=== PATIENT | female | born 1950 | race Caucasian/White ===

== ENCOUNTER → 2021-08-30 15:48 | Outpatient (CLI) | payer MEDICARE, OTHER, SELFPAY ==
--- NOTE | 2021-08-30 15:51 | CT_ITS ---
HISTORY: Abdominal pain and vomiting EXAMINATION: CT Abdomen And Pelvis W/ Contrast Injection TECHNIQUE: Helically acquired images were obtained of the abdomen and pelvis following IV and oral contrast. A radiation dose optimization technique was used for this scan. IV Contrast dosage and agent: 100mL Isovue-300 Oral contrast: Yes COMPARISON: None FINDINGS: LOWER CHEST: Lung bases with no acute findings. Visualized heart normal size. LIVER: Hazy subcentimeter low-attenuation cyst versus hemangioma within dome of liver, requiring no additional follow-up. Liver is normal in morphology. GALLBLADDER AND BILIARY TREE: No calcified gallstones identified. There is no pericholecystic edema. No significant biliary ductal dilation. KIDNEYS AND URETERS: Normal renal size. No concerning lesion. There are few small, low attenuation and simple appearing left renal cyst requiring no additional follow-up. Largest left renal cyst measures 1.5 cm. There is no perinephric inflammation or hydronephrosis. ADRENAL GLANDS: Non-enlarged. SPLEEN: Normal size without discrete mass. PANCREAS: No discrete mass or peripancreatic inflammation. BOWEL: Normal appendix located anterior to the cecum within right mid to lower abdomen. No bowel obstruction or significant bowel thickening. No focal bowel inflammation. LYMPH NODES: No enlarged mesenteric or retroperitoneal lymph nodes. PERITONEUM: No free air or significant free fluid. No other fluid collection. VESSELS: Major vessels are normal caliber and unremarkable. URINARY BLADDER: Unremarkable. REPRODUCTIVE ORGANS: No pelvic masses. ABDOMINAL WALL: No acute findings or significant hernia defect. BONES: Degenerative disc space narrowing at L5-S1. No acute osseous abnormality. Small nonaggressive sclerotic lesion within right iliac wing, recommending no additional follow-up at this time. CT/Abdomen/Pelvis WITH Contrast IMPRESSION: No evidence of acute intra-abdominal abnormality. Other non-urgent findings within body of report. Individualized dose optimization techniques were used for this CT. at 0235 Reported and signed by: Car Hernandez MD Electronically Signed: Car Hernandez MD at 2:34 EST Tel , Service support ,
[2021-08-30 16:05] LABS: CREATININE FINGERSTICK 0.7 mg/dL (0.55-1.02); EGFR FINGERSTICK > 60.0000 mL/min (>60)
== END ==
PROVIDERS: PCP Family Medicine; Referring Provider Internal Medicine Gastroenterology; Visit Provider Internal Medicine Gastroenterology
DX: R10.9 Unspecified abdominal pain (principal)
CPT/HCPCS: 74177; Q9967

== ENCOUNTER 2024-01-29 05:27 | Day surgery (SDC) | payer MEDICARE, OTHER, SELFPAY ==
--- NOTE | 2024-01-29 | IMM_PTH ---
PATIENT: MICHELLE SILVA LOC: EN U#:[id number] AGE/SX: 73/F ROOM: RE01/29/[address]: Dr. Taj Arceo DO : 1950 BED: DIS: 01/29/2024 SPEC #: [id number] RECD: 01/30/24 11:25 STATUS: JADE RERussel #: [id number] LARRY: 01/29/24 00:[address]: Taj Arceo DEPT: IMMUNOHISTOCHEMISTRY RECD BY: Milton Gómez ENTERED: 01/30/24 11:26 SP TYPE: IMMUNO OTHR DR: Dr. Yanci Garnica MD Tissues: Esophagus, NOS Procedures: P53 (initial) KI-67 (add) PHYSICIAN & INSTITUTION [facility] [id number] SPECIMEN INFORMATION: Tissue Source: Distal esophagus biopsy Clinical Info: Globus sensation, dysphagia Specimen Number: [id number] CPT code: 76087,59134 METHODOLOGY: Deparaffinized sections of prefer/formalin-fixed tissue or PAP/DQ stained slides are incubated with monoclonal/polyclonal antibodies/oligonucleotide probes. Localization is made via biotin free immunoperoxidase method. Appropriate controls are performed and reacted as expected. Results on target cell population are indicated in the following table: RESULTS: ANTIBODY / CLONE RESULT P53 (DO-7) negative (null pattern) Ki-67 (30-9) positive, low These tests were developed and their performance characteristics determined by [facility]. They may not have been cleared or approved by the U.[place]. Food and Drug Administration. The FDA has determined that such clearance or approval is not necessary. The above immunohistochemical/dualISH markers are ordered and reviewed by the Pathologist. INTERPRETATION: Distal esophagus, biopsy: Negative for dysplasia. ZOIE/ 02/02/24
[2024-01-29 05:58] VITALS: BP 163/96; PULSE 111; RESP 16; TEMP 36.6; O2SAT 100; BMI 23.6
[2024-01-29] MEDS: Lactated Ringers 1,000 ML 15 ML IV (06:03)
--- NOTE | 2024-01-29 06:30 | EGD_PTH ---
PATIENT: MICHELLE SILVA LOC: EN U#:[id number] AGE/SX: 73/F ROOM: RE01/29/[address]: Dr. Taj Arceo DO : 1950 BED: DIS: 01/29/2024 SPEC #: [id number] RECD: 01/29/24 10:09 STATUS: JADE MARIA FERNANDA #: [id number] LARRY: 01/29/24 06:[address]: Taj Arceo DEPT: SURGICAL PATHOLOGY RECD BY: Katrin Grimm ENTERED: 01/29/24 11:38 SP TYPE: EGD BIOPSY [facility] DR: Dr. Yanci Garnica MD Tissues: Esophagus, NOS Procedures: Special Stain Group II Surgery Specimen Level IV Alcian Blue/PAS (control) HEADER OPERATION: EGD, biopsy, dilatation PRE-OP DIAGNOSIS: Globus sensation, dysphagia TISSUE SUBMITTED: Distal esophagus biopsy MICROSCOPIC DIAGNOSIS Distal esophagus, biopsy: Gastroesophageal junction mucosa with mild chronic inflammation. 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 No evidence of dysplasia. See comment. AM/mr 01/30/24 COMMENT Immunohistochemistry ([id number]) supports the above diagnosis. Alcian blue/PAS stain with matched control supports the above diagnosis. MICROSCOPIC DESCRIPTION Slides are reviewed. GROSS DESCRIPTION Received in fixative is one container labeled with the patient's name and designated Distal esophagus biopsy. The specimen consists of two irregular fragments of light burleson soft tissue that in aggregate measure 1.0 x 0.5 x 0.1 cm. The specimen is totally submitted in one cassette. AM/mr 01/29/24 TC:3 CPT:58286
--- NOTE | 2024-01-29 06:47 | HP.PCM_ITS ---
History and Physical Date of Admission: 01/29/24 Lump in throat Details: MICHELLE SILVA, is a 73 F who presents to the office today for OV 09.19.21 for further evaluation of abdominal pain. She thinks her abdominal pain is secondary to not taking her medicines with food. She did go upper endoscopy and it did show inflammation secondary to celiac disease which is known. We believe that she is vitamin D deficient secondary to celiac disease. She is also having a lot of problems with the back pain. This is secondary to stenosis upper back. She is scheduled go to physical therapy today. She says she is in excruciating pain. She would like something for her back pain. OV 01.16.24 Feels fullness or lump in throat. Thyroidectomy ineffective. Omeprazole effectiveness appears to have worn off. Mild constant epigastric pain. ROS Const Constitutional: No fatigue, fever(s), frequent falls, headache(s), weakness or weight change ENT ENT: Positive for difficulty swallowing; No headache(s) Cardio Cardiology: No leg pain with exertion Gastro GI: Positive for abdominal pain, bloating and difficulty swallowing; No change in bowel habits, constipation, diarrhea, heartburn, excessive flatus, Vomiting blood/hematemesis, Blood in stool, nausea/dyspepsia or vomiting Musc Musculoskeletal: Positive for joint swelling, numbness, tingling, Arthritis and sciatica; No joint pain, back pain, muscle cramps, muscle weakness, stiffness, restless legs, leg pain at night or leg pain with exertion Skin Skin: Positive for dry skin; No lesions, itchy eyes or rash Neuro Neurology: Positive for numbness and tingling; No behavioral changes, unsteady gait/balance, weakness, frequent falls, headache(s), restless legs, tremor(s), Increased tone in limbs, paralysis or seizures Psych Psychiatric: No anxiety, No behavioral changes, No depression, No paranoia, No Compulsive Behavior, No hyperactivity, No inattentiveness, No obsessions/compulsions, No Temper Tantrums and No suicidal ideation Endo Endocrine: No fatigue or weight change Aller/Imm Allergy/Immunologic: No itchy eyes Gerald/Lymp Hematologic/Lymphatic: No easy bleeding or easy bruising Exam Const General: cooperative and comfortable Nutritional Appearance: average body habitus and well nourished HENMD Head: normal to inspection Ears: hearing grossly normal bilaterally Nose: external nose normal Face and sinus: normal facial exam Mouth: oral mucosae normal Throat: posterior oropharynx normal Eyes General: appearance normal, both eyes and all related structures Neck Neck: normal visual inspection Chest Chest palpation & inspection: normal inspection of the chest and normal palpation of entire chest wall Resp Effort & Inspection: normal respiratory effort Auscultation: Bilateral: Clear to Auscultation Cardio Palpation: normal PMI Rate: regular rate Rhythm: regular rhythm GI Inspection: normal to inspection Auscultation: normal bowel sounds Percussion: normal to percussion Palpation: no hepatosplenomegaly Skin General: no rashes or lesions noted Neuro General: patient alert Extrem General: normal to inspection Psych Affect: normal affect Assessment and Plan Assessment and Plan (1) Celiac disease: Status: Acute Plan: Patient is compliant with her diet for celiac disease. She only had a Pastor criteria 1 on her biopsies of her duodenum. She did have some gastritis. She did take an NSAIDs prior to her undergoing an endoscopy and I thought it was se condary to that. She was on PPI therapy and is now not on any therapy. Abdominal pain is a lot better now that she is eating food when she takes her medicines. However her back pain is excruciating. (2) Abdominal pain: Status: Acute Plan: Secondary to NSAIDs from gastritis status post treatment with medical therapy and off of NSAIDs. (3) Back pain: Status: Acute Plan: I will give her a short course of Flexeril and short course of tramadol therapy. I will give her 8 days worth. She was instructed not to drink any alcohol or drive while she is on the medicines. She said that she will be very careful when she does not drink much alcohol at all. (4) Dysphagia: Status: Acute Plan: Differential diagnosis for her neck pain, cough and dysphagia possibly secondary to Zenker's diverticulum, esophageal stricture, eosinophilic esophagitis, esophageal dysmotility, postnasal drip. She will undergo upper endoscopy to evaluate upper GI tract. She was explained alternatives, risk, benefits to a nondistended bleeding, infection, sepsis, perforation, need for discharge and . She have an ASA of 3. Coding Level of Care Code Off vis,est,level 4 Diagnoses Celiac disease K90.0 Abdominal pain R10.9 Back pain M54.9 Dysphagia R13.10 I have examined the patient and the H&P has been reviewed. There are no clinical changes since date of exam.
[2024-01-29 07:10] VITALS: BP 126/69; BP 163/96; PULSE 55; RESP 16; TEMP 36.1; O2SAT 100
--- NOTE | 2024-01-29 07:12 | OP.EGD_ITS ---
Patient Name: Dinorah Shin Procedure Date: 01/29/2024 6:21 AM Date of : 1950 Age: 73 Procedure: Upper GI endoscopy Indications: Dysphagia, Suspected esophageal reflux, Failure to respond to medical treatment Providers: Taj Arceo DO Medicines: Monitored Anesthesia Care Patient Profile: This is a 73 year old female. Refer to note in patient chart for documentation of history and physical. Patient has symptoms of chronic chest pain, chronic nausea and chronic throat burning. Complications: No immediate complications. Procedure: Pre-Anesthesia Assessment: - Prior to the procedure, a History and Physical was performed, and patient medications and allergies were reviewed. The risks and benefits of the procedure and the sedation options and risks were discussed with the patient. All questions were answered and informed consent was obtained. Patient identification and proposed procedure were verified by the physician. Mental Status Examination: normal. Prophylactic Antibiotics: The patient does not require prophylactic antibiotics. Prior Anticoagulants: The patient has taken no anticoagulant or antiplatelet agents. ASA Grade Assessment: II - A patient with mild systemic disease. After reviewing the risks and benefits, the patient was deemed in satisfactory condition to undergo the procedure. The anesthesia plan was to use monitored anesthesia care (MAC). Immediately prior to administration of medications, the patient was re-assessed for adequacy to receive sedatives. The heart rate, respiratory rate, oxygen saturations, blood pressure, adequacy of pulmonary ventilation, and response to care were monitored throughout the procedure. The physical status of the patient was re-assessed after the procedure. After obtaining informed consent, the endoscope was passed under direct vision. Throughout the procedure, the patient's blood pressure, pulse, and oxygen saturations were monitored continuously. The gastroscope was introduced through the mouth, and advanced to the second part of duodenum. The upper GI endoscopy was accomplished without difficulty. The patient tolerated the procedure well. Scope In: 6:57:05 AM Scope Out: 7:04:39 AM Total Procedure Duration Time 0 hours 7 minutes 34 seconds Findings: The oropharynx was normal. A moderate Schatzki ring was found at the cricopharyngeus. A guidewire was placed and the scope was withdrawn. Dilation was performed with a Savary dilator with no resistance at 51 Fr. The dilation site was examined and showed moderate mucosal disruption. Estimated blood loss was minimal. The Z-line was irregular and was found 38 cm from the incisors. Biopsies were taken with a cold forceps for histology. Verification of patient identification for the specimen was done. Estimated blood loss was minimal. A small hiatal hernia was present. No gross lesions were noted in the entire examined stomach. The duodenal bulb was normal. Impression: - Normal oropharynx. - Moderate Schatzki ring. Dilated. - Z-line irregular, 38 cm from the incisors. Biopsied. - Small hiatal hernia. - No gross lesions in the entire stomach. - Normal duodenal bulb. Recommendation: - Discharge patient to home. - Resume previous diet. - Continue present medications. - Await pathology results. Procedure Code(s): --- Professional --- 99086, Esophagogastroduodenoscopy, flexible, transoral; with insertion of guide wire followed by passage of dilator(s) through esophagus over guide wire 18330, 59,51, Esophagogastroduodenoscopy, flexible, transoral; with biopsy, single or multiple CPT copyright 2021 [employer]. All rights reserved. The codes documented in this report are preliminary and upon cat breeder review may be revised to meet current compliance requirements. Taj Arceo DO 01/29/2024 7:11:49 AM This report has been signed electronically. Number of Addenda: 0 Note Initiated On: 01/29/2024 6:21 AM
--- NOTE | 2024-01-29 07:12 | OP.CCLET_ITS ---
01/29/2024 Yanci Garnica Md Re : Upper GI endoscopy procedure for Dinorah Shin Dear Dr. Garnica This procedure was performed on January. My impressions and recommendations are as follows: Impressions : - Normal oropharynx. - Moderate Schatzki ring. Dilated. - Z-line irregular, 38 cm from the incisors. Biopsied. - Small hiatal hernia. - No gross lesions in the entire stomach. - Normal duodenal bulb. Recommendations : - Discharge patient to home. - Resume previous diet. - Continue present medications. - Await pathology results. My findings are described in the full procedure note, which is enclosed. If I can be of further assistance, please feel free to contact me at . Sincerely, Taj Friend, 01/29/2024 7:11:49 AM This report has been signed electronically.
[2024-01-29 07:15] VITALS: BP 132/67; BP 163/96; PULSE 53; RESP 16; O2SAT 100
[2024-01-29 07:20] VITALS: BP 137/76; BP 163/96; PULSE 54; RESP 16; O2SAT 100
[2024-01-29 07:25] VITALS: BP 144/81; BP 163/96; PULSE 53; RESP 16; TEMP 36.6; O2SAT 100
[2024-01-29 07:45] VITALS: BP 163/96
== END 2024-01-29 07:50 | disposition home or self-care (01) ==
LOC: EN 05:31 → AC 05:33
PROVIDERS: PCP Family Medicine; Referring Provider Family Medicine; Visit Provider Internal Medicine Gastroenterology
PROC: 0DJ08ZZ Inspection of Upper Intestinal Tract, Via Natural or Artificial Opening Endoscopic (ICD-10-PCS; CPT 43235; principal; 2024-01-29 06:25)
DX: K22.2 Esophageal obstruction (principal); K44.9 Diaphragmatic hernia without obstruction or gangrene; K90.0 Celiac disease; K22.70 Barrett's esophagus without dysplasia; K21.00 Gastro-esophageal reflux disease with esophagitis, without bleeding; E78.00 Pure hypercholesterolemia, unspecified; E89.0 Postprocedural hypothyroidism; I10 Essential (primary) hypertension; Z79.890 Hormone replacement therapy; Z79.899 Other long term (current) drug therapy
CPT/HCPCS: 43248; 43239; 88305; 88313; 88341; 88342; J7120; C1769; J2405